=== PATIENT | female | born 1975 | race Caucasian/White ===

== ENCOUNTER 2018-04-18 09:56 | Emergency (ER) | payer OTHER ==
--- NOTE | 2018-04-18 10:10 | EDPHY ---
HPI/HX/ROS/PE/MDM Narrative: CHIEF COMPLAINT: Chest pain HPI: This patient is a healthy 42 year old female. She complains of chest tightness and discomfort beginning this morning around 9:00 while she was on her computer. She has associated numbness radiating to left arm to her hand. The discomfort is intermittent and fluctuates from 0/10 to 10/10 severity. Initially , she felt a "pulsing" sensation with discomfort around 6-7/10 in severity. This increased when she stood. She denies history of heart disease in her family. Father has history of CVA. No personal history of clots or clotting disorders. No recent illness. No unusual activities or foods. Denies history of hyperlipidemia, hypertension, diabetes. Currently, she feels anxious and lethargic. She denies any current chest discomfort or shortness of breath. She continues to note decreased sensation and strength in her left hand. No fever, nausea, vomiting, or other associated symptoms. REVIEW OF SYSTEMS: A comprehensive 10 system review of systems is otherwise negative aside from elements mentioned in the history of present illness and medical decision making. PMH: Uterine ablation SOCIAL HISTORY: Employed. . at bedside. PHYSICAL EXAM: General:Patient is alert, in no acute distress. ENT:Eyes are normal to inspection. ENT inspection normal. Neck: Normal inspection. Full range of motion. Respiratory:No respiratory distress. Breath sounds normal bilaterally. Cardiovascular: Regular rate and rhythm. Strong peripheral pulses. Normal cap refill. Abdomen:The abdomen is nontender to palpation. There are no peritoneal signs. There are normal bowel sounds. Back: Normal to inspection. No tenderness to palpation. Skin: Normal color. No rash. Warm and dry. Extremities: Normal appearance. Full range of motion. Neuro: Oriented x3. Normal motor function. Normal sensory function. ED Course: This 42 year old female presents with chest pain ongoing intermittently since 9: 00 this morning. Exam unremarkable. She is currently asymptomatic. Plan for EKG , chest x-ray, labs including CBC, chemistries, troponin, d-dimer, BHCG. Plan to administer 0.5mg IV Ativan for anxiety relief at the patient's request. EKG was ordered and interpreted by myself. Please see [employer] system for official reading. Sinus rhythm. Reviewed laboratory results. Troponin and D-dimer negative. Labs otherwise largely unremarkable. Chest x-ray negative for acute processes. 11:30 Reassessed. The patient remains asymptomatic. Discussed imaging and laboratory studies. I offered her admission for observation, but patient declines and prefers discharge home with outpatient followup. Plan to discharge home in good condition. Strict return precautions discussed. Referral to cardiology provided. She is comfortable with this plan. MDM: On re-evaluation at 11:30 a.m., the patient remains completely chest pain-free and asymptomatic. We had an extensive discussion regarding her negative workup I offered her admission to the hospital for observation and further lab work, but she declines. She would like to go home. We discussed strict return precautions. I will place an order for referral to Cardiology service for urgent cardiology evaluation in order to exclude any small possibility that this represents heart disease. The patient is comfortable with this plan. I see no indication of acute coronary syndrome, pneumothorax, thoracic aortic dissection, pulmonary embolism, pneumonia. Her HEART score calculation is 1, making her low risk. - Data Points Imaging Results: Imaging Impressions Chest X-Ray 04/18/18 10:13 Impression: Negative chest. Imaging: I viewed and interpreted images myself Laboratory Results: Laboratory Results 04/18/18 10:15 04/18/18 10:15 04/18/18 04/18/18 04/18/18 10:20 10:15 10:15 WBC RBC Hgb Hct MCV MCH MCHC RDW Plt Count MPV Neut % (Auto) Lymph % (Auto) [place] % (Auto) Eos % (Auto) Baso % (Auto) Nucleat RBC Rel Count Absolute Neuts (auto) Absolute Lymphs (auto) Absolute Monos (auto) Absolute Eos (auto) Absolute Basos (auto) Absolute Nucleated RBC Immature Gran % Immature Gran # D-Dimer Sodium 139 mEq/L mEq/L (135-145) Potassium 4.5 mEq/L mEq/L (3.3-5.0) Chloride 107 mEq/L mEq/L (97-110) Carbon Dioxide 21 mEq/l L mEq/l (22-31) Anion Gap 11 mEq/L mEq/L (6-14) BUN 12 mg/dL mg/dL (7-23) Creatinine 0.6 mg/dL mg/dL (0.6-1.0) Estimated GFR > 60 Glucose 86 mg/dL mg/dL (70-100) Calcium 9.7 mg/dL mg/dL (8.5-10.4) POC Troponin I 0.00 ng/mL ng/mL (0.00-0.08) Beta HCG, Qual NEGATIVE 04/18/18 04/18/18 10:15 10:15 WBC 7.75 10^3/uL 10^3/uL (3.80-9.50) RBC 5.04 10^6/uL 10^6/uL (4.18-5.33) Hgb 14.8 g/dL g/dL (12.6-16.3) Hct 44.0 % % (38.0-47.0) MCV 87.3 fL fL (81.5-99.8) MCH 29.4 pg pg (27.9-34.1) MCHC 33.6 g/dL g/dL (32.4-36.7) RDW 13.0 % % (11.5-15.2) Plt Count 415 10^3/uL H 10^3/uL (150-400) MPV 9.4 fL fL (8.7-11.7) Neut % (Auto) 67.4 % % (39.3-74.2) Lymph % (Auto) 24.4 % % (15.0-45.0) [place] % (Auto) 5.9 % % (4.5-13.0) Eos % (Auto) 1.5 % % (0.6-7.6) Baso % (Auto) 0.5 % % (0.3-1.7) Nucleat RBC Rel Count 0.0 % % (0.0-0.2) Absolute Neuts (auto) 5.22 10^3/uL 10^3/uL (1.70-6.50) Absolute Lymphs (auto) 1.89 10^3/uL 10^3/uL (1.00-3.00) Absolute Monos (auto) 0.46 10^3/uL 10^3/uL (0.30-0.80) Absolute Eos (auto) 0.12 10^3/uL 10^3/uL (0.03-0.40) Absolute Basos (auto) 0.04 10^3/uL 10^3/uL (0.02-0.10) Absolute Nucleated RBC 0.00 10^3/uL 10^3/uL (0-0.01) Immature Gran % 0.3 % % (0.0-1.1) Immature Gran # 0.02 10^3/uL 10^3/uL (0.00-0.10) D-Dimer < 0.27 ug/mLFEU ug/mLFEU (0.00-0.50) Sodium Potassium Chloride Carbon Dioxide Anion Gap BUN Creatinine Estimated GFR Glucose Calcium POC Troponin I Beta HCG, Qual Medications Given: Discontinued Medications Lorazepam (Ativan Injection) 0.5 mg IVP EDNOW ONE Stop: 04/18/18 10:16 Last Admin: 04/18/18 10:30 Dose: 0.5 mg Point of Care Test Results: Chemistry 04/18/18 10:20 POC Troponin I 0.00 ng/mL ng/mL (0.00-0.08) General Time Seen by Provider: 04/18/18 10:02 Initial Vital Signs: Initial Vital Signs Temperature (C) 36.8 C 04/18/18 09:59 Heart Rate 80 04/18/18 09:59 Respiratory Rate 18 04/18/18 09:59 Blood Pressure 131/95 H 04/18/18 09:59 O2 Sat (%) 98 04/18/18 09:59 O2 Delivery Mode Room Air Allergies/Adverse Reactions: ampicillin Allergy (Verified 04/18/18 09:59) Swelling/neck,face,throat Penicillins Allergy (Verified 04/18/18 09:59) Swelling/neck,face,throat Sulfa (Sulfonamide Antibiotics) Allergy (Verified 04/18/18 09:59) Swelling/neck,face,throat Home Medications: Medication Instructions Recorded NK [No Known Home Meds] 04/18/18 Departure - Departure Disposition: Home, Routine, Self-Care Clinical Impression: Chest pain Condition: Good Instructions: Chest Pain (ED) Additional Instructions: Follow-up with your primary doctor within 72 hours. Return to the Emergency Department for fever, chest pain, shortness of breath, increasing pain or other worsening of condition. Follow up with a research project coordinator for further testing, as soon as possible, within one week. We would be happy to reevaluate you and observe you in the hospital at any time. Referrals: Sheila Toscano MD [Primary Care Provider] - As per Instructions Report Scribed for: Jacky Guillory Report Scribed by: Asia Patton Date of Report: 04/18/18 Time of Report: 11:50 Physician Review and Approval Statement: Portions of this note were transcribed by an ED scribe. I personally performed the history, physical exam, and medical decision making; and confirm the accuracy of the information in the transcribed note.
[2018-04-18] MEDS ORDERED: LORazepam 2 MG/ML INJ IVP ONE (10:15)
[2018-04-18 10:35] LABS: PLATELET COUNT 415 10^3/uL (150-400)
[2018-04-18 11:41] VITALS: BP 114/73
--- NOTE | 2018-04-18 15:20 | CPEKG ---
Test Reason : OPEN Blood Pressure : / mmHG Vent. Rate : 076 BPM Atrial Rate : 075 BPM P-R Int : 137 ms QRS Dur : 094 ms QT Int : 375 ms P-R-T Axes : 045 056 030 degrees QTc Int : 422 ms Sinus rhythm Confirmed by Jacky Guillory ([id number]) on 04/18/2018 3:19:54 PM Referred By: Confirmed By:Jacky Guillory
== END 2018-04-18 11:41 | disposition home or self-care (01) ==
DX: R07.89 Other chest pain (principal); R20.0 Anesthesia of skin
CPT/HCPCS: 84484-PO; 96374; J2060